=== PATIENT | female | born 2000 | race Caucasian/White ===

== ENCOUNTER 2023-03-03 20:52 | Emergency (ER) | payer BC, SELFPAY ==
[2023-03-03 20:55] VITALS: BP 142/81; PULSE 118; RESP 18; TEMP 37; O2SAT 100
--- NOTE | 2023-03-03 21:17 | ED_ITS ---
HPI - Wound/Laceration General Chief Complaint: Wound/Laceration Stated Complaint: cyst on tailbone Time Seen by Provider: 03/03/23 21:14 History of Present Illness HPI narrative: Patient is a 22-year-old female who presents ER with pain to the gluteal cleft. Pain began approximately 6 days ago. She has developed significant swelling over last couple days and now has some draining. No fevers or chills or sweats. Related Data Allergies Allergy/AdvReac Type Severity Reaction Status Date / Time No Known Allergies Allergy Verified 03/03/23 21:19 Review of Systems Constitutional: Constitutional: Reports no additional constitutional complaints Integumentary/Breasts: Skin/Breast: Denies erythema and Denies rash Comments: Gluteal fold abscess PMFSH Past Medical History Medical History (Updated 03/03/23 @ 21:28 by Oliver Hendricks MD) Healthy female adult Exam Narrative: GENERAL: Well-appearing, well-nourished, and in no acute distress. HEAD: Normocephalic, atraumatic. EXTREMITIES: Normal range of motion. No edema. SKIN: Warm, dry, large pilonidal cyst gluteal fold without cellulitis. NEURO: Alert and oriented x3. PSYCH: Normal mood and affect. Course Course Emergency Course: Patient tolerated drainage. Bactrim and [place] here. Discharge home with same medications and follow up with General surgery. Vital Signs Vital signs: Vital Signs Temperature 98.6 F 03/03/23 20:55 Pulse Rate 118 H 03/03/23 20:55 Respiratory Rate 18 03/03/23 20:55 Blood Pressure 142/81 H 03/03/23 20:55 Pulse Oximetry 100 03/03/23 20:55 Oxygen Delivery Room Air 03/03/23 20:55 Temperature 98.6 F 03/03/23 20:55 Pulse Rate 118 H 03/03/23 20:55 Respiratory Rate 18 03/03/23 20:55 Blood Pressure 142/81 H 03/03/23 20:55 Pulse Oximetry 100 03/03/23 20:55 Oxygen Delivery Room Air 03/03/23 20:55 Procedures Abscess I/D other: Date of Incision: 03/03/23 Time of Incision: 21:26 Local Anesthetic: lidocaine 1% and with epi Amount of anesthesia used (mL): 5 Technique: incised with #15 blade Packing used?: iodoform I&D Results: Pus Discharge Plan Discharge Clinical Impression: Pilonidal cyst with abscess Patient Disposition: Home, Self-Care Condition: Stable Instructions: Antibiotic Form, Pilonidal Cyst (ED) Additional Instructions: Remove your packing in 2 days. Follow-up with general surgery. Return ER if you have increased pain, fever over 100.4? F, you have additional concerns. Prescriptions: New sulfamethoxazole-trimethoprim [Bactrim DS] 800-160 mg tablet 1 tablet PO Q12H Qty: 14 0RF hydrocodone-acetaminophen 5-325 mg tablet 1 tablet PO Q6H PRN (Reason: pain) Qty: 10 0RF Follow-up/Referrals: PHYSICIAN,PATIENT CASE MANAGER [Primary Care Provider] - Sergey Galindo MD [Physician] - 1 Week
--- NOTE | 2023-03-03 21:24 | PC.NURSE ---
EDP Dr. Hendricks verbal ordered lidocaine 1% with epi for pt. This RN used closed loop communication to confirm medication/ dose/ and route for pt.
[2023-03-03] MEDS: SULFAMETHOXAZOLE/TRIMETHOPRIM 800/160 MG DS TABLET 1 TAB PO (21:55)
== END 2023-03-03 22:03 | disposition home or self-care (01) ==
PROVIDERS: Emergency Provider Emergency Medicine
DX: L05.01 Pilonidal cyst with abscess (principal)
CPT/HCPCS: 10061; 10080; 99283; A9270

== ENCOUNTER 2023-04-28 00:44 | Day surgery (SDC) | payer BC, SELFPAY ==
[2023-04-17 15:11] VITALS: BMI 32.9
--- NOTE | 2023-04-17 15:21 | PC.NURSE ---
Report to the Outpatient Waiting Room, entrance under the green pavilion located off [facility], at 0930 on 04/28/23. Planned Procedure Time: 1130. Time changes happen often and if your time is changed the preop area will call you the afternoon before. - You and your visitor will be asked to self-screen and do not enter if you have any COVID symptoms. - A mask is optional within the hospital at this time. Patients may have clear liquids (water, carbonated beverages, clear teas, apple juice) until 3 hours prior to surgery with a maximum of 20 ounces. - No food from midnight until time of surgery Take the following medications with a SIP of water the morning of surgery: pain pill if needed DO NOT STOP ANY OF YOUR OTHER PRESCRIPTION MEDICATIONS PRIOR TO SURGERY ?EXCEPT THE FOLLOWING Medications to discontinue per physician n/a Date to take last dose n/a Please no make-up, nail filipino, hairspray, perfume, deodorant, or body powder the day of surgery. No jewelry (including any body piercings) or valuables the day of surgery, leave them at home. Please take a shower or bath the night before, or the morning of, surgery with an antibacterial soap. Wear comfortable, loose fitting clothing. - Jewelry must be removed prior to entering the operating room. Rings and piercings that are not removed may be cut off. - The hospital will not accept responsibility for valuables. - Please leave all valuables, including medications, at home the day of surgery. If you are going home after surgery, a licensed regional owner operator truck driver must drive you home. - NO public transportation without another adult if you receive anesthesia. - We recommend that an adult stay with you for 24 hours following discharge. - We also recommend that you do not drive, make important decision, drink alcoholic beverages, or take any drugs that were not prescribed by your health care provider for at least 24 hours after your discharge time. Follow any additional instructions given to you from your surgeon. If you or anyone in your household have experienced Covid symptoms in the past week, please notify your surgeon or the nurse liaison at the phone number below for possible testing. Telephone instructions given to patient and asked if any additional questions and then verbalized understanding. Patient advised to call surgeon office or pre surgery nurse liaison [phone] if any additional questions.
[2023-04-28] VITALS (7 sets, daily range): BP systolic 104–131; BP diastolic 62–95; PULSE 58–80; RESP 15–20; TEMP 36.4–37.4; O2SAT 100; BMI 38.8
--- NOTE | 2023-04-28 10:46 | WPDANESEPPF ---
Anes - Initial Pre Proc Eval Procedure: Operation Date: 04/28/23 11:30 Proposed Procedures p Excision Complicated Pilonidal Cyst - Sydney Orozco MD Date/Time: 04/28/23 10:46 Surgeon: Sydney Orozco MD Pre Op Diagnosis: pilonidal cyst Patient Data Age: 23 Gender: F Height: 1.57 m Weight: 96.4 kg Last Vital Signs Temp 37.4 C 04/28/23 10:17 Pulse 80 04/28/23 10:17 Resp 16 04/28/23 10:17 BP 131/82 04/28/23 10:17 Pulse Ox 100 04/28/23 10:17 Allergies Allergy/AdvReac Type Severity Reaction Status Date / Time No Known Allergies Allergy Verified 04/28/23 10:08 Home Medications Medication Instructions Recorded Confirmed Type hydrocodone 5 mg-acetaminophen 325 1 tablet PO Q6H PRN pain #10 tabs 04/03/23 04/17/23 Rx mg tablet Patient hx anesthesia problems: none Family hx anesthesia problems: none Results Review: All pre-operative results and documents have been reviewed as part of the pre-operative evaluation. 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 Informed Consent: The patient's anesthetic plan and its attendant risks and benefits were discussed with the patient/family/POA. Questions were solicited and answers provided to the satisfaction of the patient/family/POA.
[2023-04-28] MEDS: LACTATED RINGERS 1,000 ML 30 ML IV CONT (11:11)
--- NOTE | 2023-04-28 12:09 | WPDHPUPDATE1 ---
History and Physical Update Update Date/Time: 04/28/23 12:09 History and Physical has been reviewed, including an updated exam of the patient. There are NO changes in the patient's condition. Risks, benefits, and alternatives have been discussed and questions answered. Patient agrees to proceed with procedure.
[2023-04-28] MEDS: ceFAZolin 2 GM/D5W 50 ML 2 GM/50 ML BAG IVPB (12:34)
[2023-04-28] MEDS: BACITRACIN OINTMENT 15 GM TUBE 1 APPLIC TOPICAL (13:10)
[2023-04-28] MEDS: BUPIVACAINE/EPINEPHRINE 0.5% 30 ML VIAL INFILTRATE (13:11)
--- NOTE | 2023-04-28 13:33 | W.PM.PROC2 ---
Procedure Note - Detailed Date of Procedure 04/28/23 Pre-op Diagnosis Complicated pilonidal cyst Post-op Diagnosis Same Procedure Performed excision complicated pilonidal cyst with multiple tracts measuring 8 x 4 cm Surgeon Sydney Orozco MD Anesthesia General Indications 23-year-old female with complicated pilonidal cyst and recurrent infections despite conservative management Findings multiple tracks with chronic abscess cavity measuring 8 x 4 cm Description of Procedure The patient was taken to the operating room placed in the prone position. After adequate induction of general anesthesia, the patient was prepped and draped in the normal sterile fashion. A time-out was then done to verify the patient's identity, as well as the procedure being performed. I began by examining the area. There was an inferior opening and multiple small openings along superior off connected to a chronic abscess cavity in the most superior area. The total measurement of this area was approximately 8 x 4 cm. I was able to probe these cavities and they all connected. I then made an elliptical incision to encompass the tracts including the chronic abscess cavity. Using the probe, I was able to be inferior to the cyst tract. Once completely excised, the specimen was sent to pathology for further review. The cavity was noted to be noninfected and hemostasis was gained with the Bovie cautery. I then copiously irrigated the cavity. Given that there was no evidence of infection, closed the deep subcutaneous tissue with interrupted 0 Vicryl suture. The skin and superficial subcutaneous tissue was closed with 3-0 nylon sutures in interrupted mattress fashion. Sterile dressing was then placed. The patient tolerated the procedure well and was extubated postoperatively. She will be transferred to the recovery room in stable condition. Estimated Blood Loss 5 Drains No Packing No Pathology Yes Complications No immediate complications Condition Stable Disposition PACU [facility] Billing Surgery - Charge Forward: Surgery Billing
== END 2023-04-28 15:05 | disposition home or self-care (01) ==
PROVIDERS: Visit Provider Surgery
PROC: (CPT 11772; principal; 2023-04-28 11:30)
DX: L05.91 Pilonidal cyst without abscess (principal)
CPT/HCPCS: 11772; 88305; A9270; J0330; J0690; J1100; J1200; J2250; J2405; J2704; J3010; J7120